=== PATIENT | female | born 1940 | race Caucasian/White ===

== ENCOUNTER 2021-04-04 09:52 | Emergency (ER) | payer MEDICARE, SELFPAY ==
--- NOTE | 2021-04-04 09:45 | RT.EKG_ITS ---
APPROVED REPORT Exam: Resting ECG Reason for Exam: chest pain Patient Location: E HR:95 bpm ECG Measurements Heart Rate 95 AXIS TN 144 P 76 QRSd 86 QRS 9 QT 350 T 238 QTc 440 Conclusion Sinus rhythm...normal P axis, V-rate 60- 99 Repol abnrm suggests ischemia, anterolateral...ST dep, T neg, I aVL V2-V6 1mm ST depression in anterolateral leads. No STEMI. I have reviewed and interpreted ECG and agree with software generated interpretation.
--- NOTE | 2021-04-04 10:01 | W.ED.GENAD ---
Discharge Plan Disposition Patient Disposition: HOME Condition: Improving Discharge Details Clinical Impression: Chest pain, Elevated WBC count Primary Care Provider: Radha,Local ED Provider: Ana Abebe Home Meds and New Rx's Prescriptions: New sucralfate [Carafate] 1 gram tablet 1 g PO QACHS Qty: 30 RF: 0 Continued aspirin 81 mg Tablet,Delayed Release (Dr/Ec) 81 mg PO DAILY RF: 0 raloxifene 60 mg Tablet 60 mg PO DAILY RF: 0 levothyroxine 112 mcg Tablet 112 mcg PO DAILY RF: 0 biotin 500 mcg Capsule 500 mcg PO DAILY RF: 0 cholecalciferol (vitamin D3) [Vitamin D3] 25 mcg (1,000 unit) Capsule 25 mcg PO DAILY RF: 0 PreserVision AREDS [phone] [id number] Capsule 1 cap PO BID RF: 0 Discharge Instructions Instructions: Chest Pain (ED), Diet for Stomach Ulcers and Gastritis (ED) Additional Instructions: Your labs and imaging are reassuring here today. Your pain did improve with movement as well as treatment of acid reflux. Please continue with acid reflux medications as prescribed. Please avoid acidic foods, carbonated beverages or other foods that may trigger increased discomfort. Please continue with your medications as previously prescribed. Please call your public relations sales marketing on Tuesday to schedule follow-up appointment for further evaluation. Please also follow-up closely with your primary care physician. If you develop fever/chills, increased pain, inability to stay hydrated or other new/worsening symptoms please seek care urgently once again. Discharge Data Discharge Date/Time-TO BE ENTERED AT DEPARTURE: 04/04/21 14:36 Medical Decision Making Patient is a pleasant 80-year-old female presented with chief complaint of chest pain. She reports she awoke with chest comfort this morning. Describes this as a pressure. States that this pressure radiates into her bilateral upper extremities which are both aching. Denies any pain radiating to the back. Denies any shortness of breath but does report that pain increases with inspiration. Denies any nausea or vomiting. However, she does report that she has some fairly significant GERD which has been worsening over time. States that she did eat a large meal last night and took Tums shortly after dinner. Patient did take full dose aspirin. She denies any history of ischemic cardiac disease. However, she does report that she had a mitral valve replacement in 2012. Patient reports that she is very active, walks at least 3 miles including hills every day. Has not had any exertional symptoms associated with these times of exercise. Also denies any exertional component to her discomfort today. Rather, she reports that this has been constant with no real exacerbating factors. Patient did drive up from [place] 5 days ago. Denies any history of DVT or clotting disorders. No lower extremity discomfort. On exam, patient appears nontoxic. She is resting comfortably. Normal cardiac exam. Lungs are clear. Acceptable small extremities. No extremity edema or calf tenderness. Differential diagnosis includes ACS, GERD, PE, versus other. History exam is not consistent with aortic dissection. EKG was obtained and reviewed by Dr. Biswas. No previous for comparison. Patient is a sinus rhythm with a rate of 95. Patient does have repull abnormality with [address] depression on the anterior lateral leads. No STEMI. Labs reviewed. Slight elevation white count of 13.9. CMP otherwise without significant abnormalities. D-dimer within normal limits. Chemistry significant for BUN of 23. Troponin within normal limits. TSH within normal limits. Plan for repeat troponin. Patient's blood pressure still significantly. She reports that Carafate did improve her symptoms. States that she continues to have mild discomfort but overall vastly improved. Will add Protonix to this. Chest x-ray was reviewed by radiologist: FINDINGS: Lungs: Emphysema with interstitial prominence in the upper lungs, right worse than left that could be due to scarring or infiltrate. Pleural spaces: Unremarkable. No pleural effusion. No pneumothorax. Heart/Mediastinum: Mitral valve repair. Bones/joints: Unremarkable. Intraperitoneal space: Surgical clips right upper quadrant. IMPRESSION: Emphysema with scarring or infiltrate in the upper lungs. Patient is feeling improved with Protonix. Feels that she is uncomfortable laying down and would improve with mobility. Repeat troponin remains less than 0.05. Repeat EKG was reviewed by Dr. Biswas. Patient began sinus rhythm with a rate of 80. Improvement in the resolution of all depression in the anterior lateral leads. No STEMI. HEART score 3. Discussed this with the patient. Patient was road tested and had improvement of her chest and shoulder discomfort with ambulation. Now reports no pain. Patient wanted to run during her road test. Patient continues to report that her symptoms have improved with Carafate and Protonix. This is likely GI mediated particularly as she was able to link it to the dinner she had last night. Patient would prefer to be able to be at home today. She is planning on returning to [place] tomorrow. Plan to discharge home. She will be in the accompaniment of family is able to return if she develops any new or worsening symptoms. She will follow-up with her house decorator as well as her public relations sales marketing. She reports that she does have an upcoming appointment for echo and schedule follow-up with her public relations sales marketing. I advised that she be evaluated in the next week. Strict return precautions were discussed. Patient is already on an aspirin. We will have her continue with Carafate as this did seem to have good results with the patient. All of her questions and concerns were addressed and she is in agreement with this plan. [facility] General Mode of arrival: ambulatory. Date/Time Provider Initiated Documentation: 04/04/21 09:53. Limitations to Documentation: no limitations. Information obtained by: patient, family () and RN notes reviewed. History of Present Illness 80 year old F presents to the emergency department with the chief complaint of CP, described as moderate, with intensity rated at 6. Quality is described as other (pressure), and is localized to the chest. Patient extremity (BUE, describes pain in arms as aching). Patient started experiencing this hour(s) (0530) and it has been constant. No relieving factors improve symptom(s), No exacerbating factors reported . Patient notes chest pain; denies cough, diaphoresis, fever/chills, loss of appetite, nausea/vomiting, rash, shortness of breath (reports pain worse with inspiration), syncope and weakness. Related Data Home Medications Medication Instructions Recorded Confirmed PreserVision AREDS 1 cap PO BID 04/04/21 04/04/21 aspirin 81 mg PO DAILY 04/04/21 04/04/21 biotin 500 mcg PO DAILY 04/04/21 04/04/21 cholecalciferol (vitamin D3) 25 mcg PO DAILY 04/04/21 04/04/21 [Vitamin D3] levothyroxine 112 mcg PO DAILY 04/04/21 04/04/21 raloxifene 60 mg PO DAILY 04/04/21 04/04/21 sucralfate [Carafate] 1 g PO QACHS #30 tab 04/04/21 Previous Rx's Medication Instructions Recorded sucralfate [Carafate] 1 g PO QACHS #30 tab 04/04/21 Allergies Allergy/AdvReac Type Severity Reaction Status Date / Time azithromycin Allergy Mild Skin Rash Unverified 04/04/21 10:01 Sulfa (Sulfonamide Allergy Mild Skin Rash Unverified 04/04/21 10:01 Antibiotics) Review of Systems Constitutional Constitutional: Reports as per HPI, Denies chills, Denies fever(s), Denies headache(s), Denies lethargy and Denies poor appetite Eyes Eyes: Denies change in vision ENT Ears, Nose, Mouth, and Throat: Denies dizziness and Denies headache(s) Cardiovascular Cardiovascular: Reports as per HPI, Denies dyspnea and Denies dyspnea on exertion Respiratory Respiratory: Reports as per HPI, Denies chest congestion, Denies cough, Denies pain on inspiration, Denies pain with cough, Denies dyspnea, Denies dyspnea on exertion and Denies wheezing Gastrointestinal Gastrointestinal: Reports as per HPI, Denies abdominal pain, Denies diarrhea, Denies nausea and Denies vomiting Musculoskeletal Musculoskeletal: Reports as per HPI and Denies back pain Integumentary/Breasts Skin/Breast: Reports as per HPI and Denies rash Neurologic Neurologic: Reports as per HPI, Denies dizziness and Denies headache(s) Allergic/Immunologic Allergic/Immunologic: Denies wheezing [facility] Social History Smoking/Tobacco Use Status: Never Smoking risk assessment performed?: Yes Alcohol Intake: current Alcohol Intake frequency: 0-2 drinks per day Drug use: Never Do you feel safe at home: Yes Do you feel safe in your relationship?: Yes Exam Const General: cooperative, healthy appearing, comfortable, no acute distress and well developed Nutritional Appearance: average body habitus and well nourished Orientation: alert, awake and oriented x3 HENMT Head: normal to inspection Ears: hearing grossly normal bilaterally Mouth: moist mucous membranes Chest Chest: normal inspection of the chest, normal palpation of entire chest wall and no crepitus Resp Effort & Inspection: normal respiratory effort, able to speak in complete sentences and no respiratory distress Auscultation: clear to auscultation bilaterally, no rales, no rhonchi and no wheezes Cardio Rate: regular rate Rhythm: regular rhythm Heart Sounds: S1 normal and S2 normal GI Inspection: normal to inspection, no edema and non-distended Palpation: soft, no hepatosplenomegaly, not firm, no guarding, not rigid and nontender Auscultation: normal bowel sounds Skin General skin exam: no rashes or lesions noted Trauma: no lacerations or abrasions Neuro General: patient alert, patient awake and patient oriented x3 Cognition: normal cognition Speech: speech normal Gait: normal gait Extrem General: normal to inspection, capillary refill normal, no pedal edema, no calf tenderness, normal gait and other (2+ distal puolses in all extremities) Psych Appearance: grossly normal and well kempt Mental Status: mental status grossly normal Speech and Movement: speech and movement normal
[2021-04-04 10:06] VITALS: BP 170/80; PULSE 93; RESP 15; TEMP 36.5; O2SAT 100
--- NOTE | 2021-04-04 10:15 | DI.RAD_ITS ---
Exam(s) XR CHEST 2V PA LATERAL EXAM: XR CHEST 2V PA LATERAL CLINICAL HISTORY: pleuritic CP TECHNIQUE: 2D digital imaging was performed. COMPARISON: No exams were available for comparison FINDINGS: MEDIASTINUM: Normal. HEART: Normal. Mitral valve replacement. PULMONARY VASCULATURE: Normal. LUNGS: The lungs appear hyperinflated suggesting underlying COPD. PLEURAL SPACE: No pleural effusion or pneumothorax. BONE:Within normal limits for the patient's age. OTHER FINDINGS:Surgical clips are seen in the right upper quadrant of the abdomen. IMPRESSION: No acute pulmonary findings. DATA REPOSITORY: RADIATION DOSE DELIVERED:
[2021-04-04 10:18] VITALS: BP 165/73; PULSE 85; PULSE 87; RESP 18; O2SAT 100
[2021-04-04] MEDS: Sucralfate 1 GM TAB PO (10:28)
[2021-04-04 10:37] LABS: Abs Immature Grans 0.06 10^3/uL (0.0-0.06); Absolute Basophil Count 0.04 10^3/uL (0.0-0.2); Absolute Eosinophil Count 0.08 10^3/uL (0.0-0.7); Absolute Monocyte Count 0.67 10^3/uL (0.1-0.8); Absolute Neutrophil Count 11.64 10^3/uL (1.2-6.7); Basophils % 0.3; Eosinophils % 0.6; HCT 45.2 % (36.0-46.0); HGB 15.1 g/dL (11.2-15.7); Immature Grans % 0.4; Lymphocytes % 10.7; MCH 31.9 pg (27.0-33.0); MCHC 33.4 % (32.0-36.0); MCV 95.4 fL (80-95); MPV 10.5 fL (8.0-11.0); Monocytes % 4.8; Neutrophils % 83.2; Nucleated RBC 0 %; Platelet Count 237 10^3/uL (130-400); RBC 4.74 10^6/uL (3.93-5.22); RDW 13.9 % (11.7-14.6); RDW-SD 49.2 fL; WBC 13.99 10^3/uL (4.4-10.8)
[2021-04-04 10:46] LABS: Prothrombin Time 10.3 sec (9.3-11.0)
[2021-04-04 10:49] LABS: ALT 27 U/L (14-59); AST 21 U/L (15-37); Albumin 3.4 g/dL (3.4-5.0); Alkaline Phosphatase 60 U/L (46-116); Anion Gap 11.4 mmol/L (3-11); BUN 23 mg/dL (7-18); Bilirubin, Total 0.5 mg/dL (0.2-1.0); CO2 25.6 mmol/L (21.0-32.0); CREATININE 0.9 mg/dL (0.55-1.02); Calcium 9.2 mg/dL (8.5-10.1); Chloride 105 mmol/L (98-107); Glucose 99 mg/dL (74-106); Potassium 4.2 mmol/L (3.5-5.1); Sodium 142 mmol/L (136-145); Total Protein 7.2 g/dL (6.4-8.2)
--- OUTSIDE RECORDS SUMMARY | 2021-04-04 10:52 | XMS_ITS | Encounter Summary ---
:1940 Author Organization [facility] Address [address] [place] [phone] Care Team Providers Name Role Phone Inez Oneill MD Primary Care Provider Encounter Details Date Type Department Care Team Description 10/12/2017 Scanned Document [facility] Gynecology [facility] Shital Geiger MD 4A [facility] [address] [place], [place] [address] [address] [place], [place] [phone] Social History Tobacco Use Types Packs/Day Years Used Date Former Smoker Smokeless Tobacco: Never Used Alcohol Use Drinks/Week oz/Week Comments Yes Sex Assigned at Date Recorded Not on file documented as of this encounter Plan of Treatment Upcoming Encounters Date Type Specialty Care Team Description 05/04/2021 Appointment Cardiovascular Disease Jose D Crawford MD [address] [phone] 05/29/2021 Office Visit Cardiovascular Disease Jose D Crawford MD [address] [phone] documented as of this encounter Visit Diagnoses Not on filedocumented in this encounter
--- OUTSIDE RECORDS SUMMARY | 2021-04-04 10:52 | XMS_ITS | Encounter Summary ---
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 elephone Encounter - Jo Ann Webb RN - 07/13/2018 3:[address] Crawford please. Pt calling about new ASA findings. As per MD email, pt informed pt's are advised to stay on ASA until their next OV and issue can be discussed then. Please advise if anything. documented in this encounter Plan of Treatment Upcoming Encounters Date Type Specialty Care Team Description 05/04/2021 Appointment Cardiovascular Disease Jose D Crawford MD [address] [place] [phone] 05/29/2021 Office Visit Cardiovascular Disease Jose D Crawford MD [address] [phone] documented as of this encounter Visit Diagnoses Not on filedocumented in this encounter
--- OUTSIDE RECORDS SUMMARY | 2021-04-04 10:52 | XMS_ITS | Encounter Summary ---
:1940 [address] [facility] and [facility] Address [address] [place] [phone] Care Team Providers Name Role Phone Inez Oneill MD Primary Care Provider Reason for Referral Imaging (Routine) Status Reason Specialty Diagnoses / Referred By Referred To Procedures Contact Contact Closed Cardiovascular Disease Diagnoses MVP (mitral valve prolapse) Palpitations Shortness of breath Marcela Crawford MD Procedures Cardiac Event Monitor [address] [place] [address] Reason for Visit Imaging (Routine) Status Reason Specialty Diagnoses / Referred By Referred To Procedures Contact Contact Closed Cardiovascular Disease Diagnoses MVP (mitral valve prolapse) Palpitations Shortness of breath Marcela Crawford MD Procedures Cardiac Event Monitor [address] [place] [address] Encounter Details Date Type Department Care Team Description 09/11/2019 Hospital Encounter [facility] Cardiac Services Marcela Crawford MVP (mitral valve prolapse); Ramana KENDRICK Palpitations; [address] [facility] [address] [facility] Shortness of breath [address] [place] [address] [place], [place] [phone] Social History Tobacco Use Types Packs/Day Years Used Date Former Smoker Quit: 1969 Smokeless Tobacco: Never Used Alcohol Use Drinks/Week oz/Week Comments Yes social Sex Assigned at Date Recorded Not on file documented as of this encounter Medications at Time of Discharge Medication Sig Dispensed Refills Start Date End Date aspirin 81 MG EC tablet Take 81 mg by mouth 0 daily. biotin 1 mg tablet Take 5,000 mcg by 0 mouth daily.. cycloSPORINE (RESTASIS) Apply 1 drop to 0 0.05 % Dpet eye. levothyroxine (SYNTHROID, Take 112 mcg by 0 06/28 LEVOTHROID) 112 MCG tablet mouth daily. raloxifene (EVISTA) 60 mg Take 60 mg by mouth 0 1 tablet daily. calcium carbonate (TUMS) Take 1 tablet by 0 11/08/2019 *200 mg CALCIUM* chewable mouth as needed tablet levothyroxine (SYNTHROID, 0 09/24/2016 11/08/2019 LEVOTHROID) 100 MCG tablet documented as of this encounter Plan of Treatment Upcoming Encounters Date Type Specialty Care Team Description 05/04/2021 Appointment Cardiovascular Disease Jose D Crawford MD [address] [address] [phone] 05/29/2021 Office Visit Cardiovascular Disease Jose D Crawford MD 2 [facility] 1 [place] [address] [phone] documented as of this encounter Procedures Procedure Name Priority Date/Time Associated Diagnosis Comme [facility] CARDIAC EVENT MONITOR Routine 09/11/2019 12:16 PM MVP (mitral valve 15 OR 30 DAYS EST prolapse) Palpitations Shortness of breath documented in this encounter Results Cardiac Event Monitor (09/11/2019 12:16 PM EST) Specimen Narrative Performed At This result has an attachment that is no t available. Performing Organization Address City/State/ZIP Code Phon e Number [email or web address] documented in this encounter Visit Diagnoses Diagnosis MVP (mitral valve prolapse) Mitral valve disorders Palpitations Shortness of breath documented in this encounter
--- OUTSIDE RECORDS SUMMARY | 2021-04-04 10:52 | XMS_ITS | Encounter Summary ---
:1940 Author Organization [facility] and [facility] Address [address] [place] [phone] Care Team Providers Name Role Phone Inez Oneill MD Primary Care Provider Reason for Referral Imaging (Routine) Status Reason Specialty Diagnoses / Referred By Referred To Procedures Contact Contact Closed Cardiovascular Disease Diagnoses Palpitations Marcela Crawford MD Procedures Holter Monitor - 48 Hour [address] [phone] Reason for Visit Imaging (Routine) Status Reason Specialty Diagnoses / Referred By Referred To Procedures Contact Contact Closed Cardiovascular Disease Diagnoses Palpitations Marcela Crawford MD Procedures Holter Monitor - 48 Hour [address] [phone] Encounter Details Date Type Department Care Team Description 10/25/2019 Hospital Encounter [facility] Cardiac Services Ever Crawford MD Palpitations Rachel 2 [facility] 5 [facility] [address] [place] [phone] Social History Tobacco Use Types Packs/Day [...] Cardiovascular Disease Jose D Crawford MD [address] [address] [phone] 05/29/2021 Office Visit Cardiovascular Disease Jose D Crawford MD [address] [address] [phone] documented as of this encounter Procedures Procedure Name Priority Date/Time Associated Diagnosis Comme nts HOLTER MONITOR - 48 Routine 11/01/2019 8:33 AM EST Palpitatio ns HOUR documented in this encounter Results Holter Monitor - 48 Hour (11/01/2019 8:33 AM EST) Specimen Narrative Performed At This result has an attachment that is no t available. Performing Organization Address City/State/ZIP Code [facility] e Number [email or web address] documented in this encounter Visit Diagnoses Diagnosis Palpitations documented in this encounter
--- OUTSIDE RECORDS SUMMARY | 2021-04-04 10:52 | XMS_ITS | Encounter Summary ---
:1940 Author Organization [facility] Address [address] [place] [phone] Care Team Providers Name Role Phone Inez Oneill MD Primary Care Provider Encounter Details Date Type Department Care Team Description 11/22/2020 Immunization [facility] Covid Vaccination - Enco unter for immunization [facility] (Primary Dx) [address] [facility] [address] [place] [address] Social History Tobacco Use Types Packs/Day Years Used Date Former Smoker Quit: 1970 Smokeless Tobacco: Never Used Alcohol Use Drinks/Week oz/Week Comments Yes social Sex Assigned at Date Recorded Not on file documented as of this encounter Plan of Treatment Upcoming Encounters Date Type Specialty Care Team Description 05/04/2021 Appointment Cardiovascular Disease Jose D Crawford MD [address] [phone] 05/29/2021 Office Visit Cardiovascular Disease Jose D Crawford MD [address] [phone] documented as of this encounter Visit Diagnoses Diagnosis Encounter for immunization - Primary Need for other specified prophylactic va ccination against single bacterial disease documented in this encounter
--- OUTSIDE RECORDS SUMMARY | 2021-04-04 10:52 | XMS_ITS ---
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 Problem List Description Status Onset Family history of breast cancer Active 01/27/20 17 Macular degeneration Active 01/26/2017 Cystocele Active 01/26/2017 Vital Signs Date Time BP-Sys(mm[Hg] BP-Teresa(mm[Hg]) HR(bpm) RR(rpm) Temp WT HT HC BMI BSA BMI O2 Percentile Sat( %) 3:05: 126 mm[Hg] 80 mm[Hg] 124 62 22.6 1.56 017 00 PM lbs in 797 86 kg/m m2 2 Social History Name Description Comments Retired Pt exercises regularly Uses seat belts Tobacco Never smoker Alcohol Current every day Denies illicit substance abuse Feels safe at home History of Procedures Date Ordered Description Order Status 01/26/2017 12:00 AM Pap - with HPV Reviewed 01/26/2017 12:00 AM Medicare geospatial analyst exam Reviewed Results Summary Date and Description Results 01/26/2017 12:00 AM Pap Smear: Normal HPV I/H Ri sk 1 DNA Cervix Ql bDNA Negative 01/26/2017 1:17 PM HPV RNA E6/E7, SurePath Vial Negative 01/26/2017 2:51 PM Mammogram: 03/2016 per pt Col onoscopy: 03/2016 per pt Bone Density 05/2015 per pt History of Past Illness Name Date of Onset Comments Family history of breast cancer 01/26/2017 Diverticulitis 01/2017 early statges per pt Macular degeneration 01/26/2017 Patient reports nadeem t the macular degeneration is in the early stages Former smoker Thyroid disease Mitral Valve Disorders Cystocele 01/26/2017 Encounter for gynecological Jan 26 2017 3:01PM examination Family history of breast cancer Jan 26 2017 3:01PM Macular degeneration Jan 26 2017 3:01PM Cystocele Jan 26 2017 3:01PM Payers Insurance Name Company Name Plan Name Plan Policy Number Policy Start Number Group Date Number Medicare Medicare B-Ct: [id number] N/A [facility] [id number] N/ A Options History of Encounters Visit Date Visit Type Provider 01/26/2017 Office Visit - AUTOMOTIVE DESIGNER 01/26/2017 Office Visit - AUTOMOTIVE DESIGNER Lindsey Bowie MD
--- OUTSIDE RECORDS SUMMARY | 2021-04-04 10:52 | XMS_ITS | Encounter Summary ---
:1940 Author Organization [facility] and [facility] Address [address] [place] [id number] Care Team Providers Name Role Phone Inez Oneill MD Primary Care Provider Reason for Referral Imaging (Routine) Status Reason Specialty Diagnoses / Referred By Referred To Procedures Contact Contact Closed Cardiovascular Disease Diagnoses Mitral valve insufficiency, unspecified etiology Marcela Crawford, Procedures Echo 2D Complete w Doppler and CFI if Indicated Contrast and or 3D [address] [place] [phone] Encounter Details Date Type Department Care Team Description 10/25/2017 Orders Only [facility] Marcela Crawford MD Mitral valve Medicine at [address] [facility] 1 unspecified etiology [address] [place], [place] (Deja lew Dx) [address] [id number] [place] [address] [phone] Social History Tobacco Use Types Packs/Day Years Used Date Former Smoker Smokeless Tobacco: Never Used Alcohol Use Drinks/Week oz/Week Comments Yes Sex Assigned at Date Recorded Not on file documented as of this encounter Plan of Treatment Upcoming Encounters Date Type Specialty Care Team Description 05/04/2021 Appointment Cardiovascular Disease Jose D Crawford MD [address] [phone] 05/29/2021 Office Visit Cardiovascular Disease Jose D Crawford MD [address] [place] [address] documented as of this encounter Results Echo 2D Complete w Doppler and CFI if Indicated Contrast and or 3D (12/16/2017 3:21 PM EST) Pathologist Sig nature Reported Biplane EF% 66Comment: % [facility] UNSELECTED VALUES:EF Percent Visual Range (LUMBIPLANE test with value): 60-65 Specimen Narrative Performed At * Normal left ventricular size, thickness, systolic f unction and wall [facility] motion. LVEF calculated by biplane Acuña's was 66%. ??No regional wall motion abnormalities. ??Diastolic function was di fficult to determine due to mitral valve abnormalit ies. * Normal right ventricular cavity size, systolic funct ion and wall motion. ??Right Ventricular systolic pressure is unabl e to be estimated due to insufficient Doppler signal * Myxomatous mitral valve. ??Trace mitral regurgitatio n. ??No mitral stenosis. ??Mitral valve mean gradient is 2 mmHg. Mitr al valve repair with good leaflet coaptation.No systolic anterior motion. * Aortic valve is trileaflet. ??Mild aortic valve thic kening. ??No aortic stenosis. ??Mild aortic regurgita tion. * Dilated Non-coronary Sinus of Valsalva . * IVC diameter < 2.1 cm that collapses > 50% with a sn iff suggests normal RAP (0-5 mmHg, mean 3 mmHg * No evidence of pericardial effusion * No prior study available for comparison Procedure Note Sean, Rad Results In - 12/16/2017 4:41 P M EST * Normal left ventricular size, thickness, systolic function and wall motion. LVEF calculated by biplane Acuña's was 66%. No regional wall motion abnormalities. Diastolic functio n was difficult to determine due to mitral valve abnormalities. * Normal right ventricular cavity size, systolic function and wall motion. Right Ventricular systolic pressure is unable to be estimated due to insufficient Doppler signal * Myxomatous mitral valve. Trace mitral regurgitation. No mitral stenosis. Mitral valve mean gradient is 2 mmHg. Mitral valve repair with good leaflet coaptation.No systolic anterior motion. * Aortic valve is trileaflet. Mild aort ic valve thickening. No aortic stenosis. Mild aortic regurgitation. * Dilated Non-coronary Sinus of Valsalva . * IVC diameter < 2.1 cm that collapses > 50% with a sniff suggests normal RAP (0-5 mmHg, mean 3 mmHg * No evidence of pericardial effusion * No prior study available for compariso n Performing Organization Address City/State/ZIP Code Phon e Number [facility] documented in this encounter Visit Diagnoses Diagnosis Mitral valve insufficiency, unspecified etiology - Primary documented in this encounter
--- OUTSIDE RECORDS SUMMARY | 2021-04-04 10:52 | XMS_ITS | Clinical Summary ---
:1940 [address] Organization [address] Address [address] [place] [address] Care Team Providers Name Role Phone Inez Oneill MD Primary Care Provider Allergies Active Allergy Reactions Severity Noted Date Comments Azithromycin Rash Low 06/27/2013 Sulfur Rash Low 06/27/2013 Medications Medication Sig Dispensed Refills Start Date End Date Status cycloSPORINE (RESTASIS) Apply 1 drop to 0 Active 0.05 % Dpet eye. aspirin 81 MG EC tablet Take 81 mg by 0 Active mouth daily. biotin 1 mg tablet Take 5,000 mcg 0 Active by mouth daily.. raloxifene (EVISTA) 60 Take 60 mg by 0 07/24/2019 Active mg tablet mouth daily. levothyroxine Take 112 mcg by 0 06/28/2019 Active (SYNTHROID, LEVOTHROID) mouth daily. 112 MCG tablet Active Problems Problem Noted Date Post-menopausal 10/12/2017 MVP (mitral valve prolapse) 11/25/2016 H/O mitral valve repair 11/25/2016 Immunizations Name Administration Dates Next Due COVID-19 Vaccine - PFIZER 12/14/2020, 11/22/2020 Family History Medical History Relation Name Comments Colon cancer Father Coronary Artery Disease Father in early 60s Cancer Mother mesothelioma Cancer Sister glioblastoma Relation Name Status Comments Father Mother Sister Social History Tobacco Use Types Packs/Day Years Used Date Former Smoker Quit: 1969 Smokeless Tobacco: Never Used Alcohol Use Drinks/Week oz/Week Comments Yes social Sex Assigned at Date Recorded Not on file Last Filed Vital Signs Vital Sign Reading Time Taken Comments Blood Pressure 138/80 11/17/2020 10:11 AM EST Pulse 78 11/17/2020 10:11 AM EST Temperature - - Respiratory Rate - - Oxygen Saturation 97% 11/05/2019 2:01 PM EST Inhaled Oxygen Concentration - - Weight 57.2 kg (126 lb) 11/17/2020 10:11 AM EST Height 152.4 cm (5') 11/17/2020 10:11 AM EST Body Mass Index 24.61 11/17/2020 10:11 AM EST Plan of Treatment Upcoming Encounters Date Type Specialty Care Team Description 05/04/2021 Appointment Cardiovascular Disease Jose D Crawford MD [address] [phone] 05/29/2021 Office Visit Cardiovascular Disease Jose D Crawford MD [address] [place] [phone] Health Maintenance Due Date Last Done Comments Hepatitis C screening 1960 Lipid disorder screening 1982 Diabetes screening 1987 Osteoporosis screening (bone density) 2007 Pneumo Vaccine 65+ (2 of 2 - PPSV23) 2007 01/14/2017 Influenza vaccine 05/24/2021 07/24/2020, 07/26/2018 Tetanus adult (Td q 10,TDAP once) 10/24/2021 10/24/2011 Shingles vaccine (Shingrix) Completed 06/22/2019, 01/19/20 19 Covid-19 vaccine series Completed 12/14/2020, 11/22/2020 Breast cancer screening Discontinued Cervical cancer screening (Pap Smear) Discontinued Colon cancer screening,Colonoscopy Discontinued Insurance Payer Benefit Plan / Subscriber ID Effective Dates Phone Addre ss Type Group MEDICARE MEDICARE PART A [id number] 2007-Presen [address] [place] [phone] AAR AAR [id number] 2016-Present [phone] [address] [place] [address]
--- OUTSIDE RECORDS SUMMARY | 2021-04-04 10:52 | XMS_ITS | Encounter Summary ---
:1940 Author Organization [facility] Address [address] [place] [phone] Care Team Providers Name Role Phone Inez Oneill MD Primary Care Provider Reason for Visit Reason Comments New Patient Encounter Details Date Type Department Care Team Description 10/12/2017 Office Visit [facility] Lucy Francisco Vulvar itching (Primary Dx); Shital Law MD Post-menopausal; 4A [facility] 4A [facility] Cystocele with uterine descensus [place], [place] [address] [place], [place] [phone] Social History Tobacco Use Types Packs/Day Years Used Date Former Smoker Smokeless Tobacco: Never Used Alcohol Use Drinks/Week oz/Week Comments Yes Sex Assigned at Date Recorded Not on file documented as of this encounter Last Filed Vital Signs Vital Sign Reading Time Taken Comments Blood Pressure 120/70 10/12/2017 9:30 AM EST Pulse - - Temperature - - Respiratory Rate - - Oxygen Saturation - - Inhaled Oxygen Concentration - - Weight 55.3 kg (122 lb) 10/12/2017 9:30 AM EST Height 158.8 cm (5' 2.5) 10/12/2017 9:30 AM EST Body Mass Index 21.96 10/12/2017 9:30 AM EST documented in this encounter Patient Instructions Patient InstructionsLucy Garcia MD - 10/12/2017 9:30 AM ESTDisorders of the Vulva It is important to know the outside (external) area of the female genitalia to properly examine yourself. The vulva or labia, sometimes also called the lips around the vagina, covers the pubic bone andsurrounds the vagina. The larger or outer labia is called the labia majora. The inner or smaller labia is called the labia minora. The clitoris is at the top of the vulva. It is covered by a small areaof tissue called the hopson. Below the clitoris is the opening of the tube from the bladder, which is the urethral opening. Just below the urethral opening is the opening of the vagina. This area is called the vestibule. Inside the vestibule are bartholin and skene glands that lubricate the outside of the vagina during sexual intercourse. The perineum is the area that lies between the vagina and anus. You should examine your external genitalia once a month just as you do your self breast examination. SIGNS AND SYMPTOMS TO LOOK FOR DURING YOUR EXAMINATION: ?? Swelling. ?? Redness. ?? Bumps. ?? Blisters. ?? Black or white areas. ?? Itching. ?? Bleeding. ?? Burning. TYPES OF VULVAR PROBLEMS ?? Infections. ?? Yeast (fungus) is the most common infection that causes redness, swelling, itching and a thick white vaginal discharge. Women with diabetes, taking medicines that kill germs (antibiotics) or on control pills are at risk for yeast infection. This infection is treated with vaginal creams, suppos itories and anti-itch cream for the vulva. ?? Genital warts (condyloma) are caused by the human papilloma virus. They are raised bumps that canitch, bleed, cause discomfort and sometimes appear in groups like cauliflower. This is a sexually transmitted disease (STD) caused by sexual contact. This can be treated with topical medication, freezing, electrocautery, laser or surgical removal. ?? Genital herpes is a virus that causes redness, swelling, blisters and ulcers that can cause itching and are very painful. This is also a STD. There are medications to control the symptoms of herpes,but there is no cure. Once you have it, you keep getting it because the virus stays in your body. ?? Contact dermatitis. Contact dermatitis is an irritation of the vulva that can cause redness, swelling and itching. It can be caused by: ?? Perfumed toilet paper. ?? Deodorants. ?? Talcum powder. ?? Hygiene sprays. ?? Tampons. ?? Soaps and fabric softeners. ?? Wearing wet underwear and bathing suits too long. ?? Spermicide. ?? Condoms. ?? Diaphragms. ?? Poison lucila. Treatment will depend on eliminating the cause and treating the symptoms. ?? Vulvodynia. ?? Vulvodynia is painful vulva. It includes burning, itching, irritation and a feeling of rawness or bruising of the vulva. Treating this problem depends on the cause and diagnosis. Treatment can take a long time. ?? Vulvar Dystrophy. ?? Vulvar Dystrophy is a disorder of the skin of the vulva. The skin can be too thick with hard raised patches or too thin skin showing wrinkles. Vulvar dystrophy can cause redness or white patches, itching and burning sensation. A biopsy may be needed to diagnose the problem. Treatment with creams orointments depends on the diagnosis. ?? Vulvar Cancer. ?? Vulvar cancer is usually a form of squamus skin cancer. Other types of vulvar cancer like melenoma (a dark or black, irregular shaped mole that can bleed easily) and adenocarcinoma (red, itchy, scaly area that looks like eczema) are rare. Treatment is usually surgery to remove the cancerous area, the vulva and the lymph nodes in the groin. This can be done with or without radiation and chemotherapy. HOME CARE INSTRUCTIONS ?? Look at your vulva and external genital area every month. ?? Follow and finish all treatment given to you by your caregiver. ?? Do not use perfumed or scented soaps, detergents, hygiene spray, talcum powder, tampons, douches or toilet paper. ?? Remove your tampon every 6 hours. Do not leave tampons in overnight. ?? Wear loose-fitting clothing. ?? Wear underwear that is cotton. ?? Avoid spermicidal creams or foams that irritate you. SEEK MEDICAL CARE IF: ?? You notice changes on your vulva such as redness, swelling, itching, color changes, bleeding, small bumps, blisters or any discomfort. ?? You develop an abnormal vaginal discharge. ?? You have painful sexual intercourse. ?? You notice swelling of the lymph nodes in your groin. Document Released: 03/28/2009 Document Revised: 01/01/2013 Document Reviewed: 01/10/2012 ExitCare?? Patient Information ??2013 [employer]. documented in this encounter Progress Notes Lucy Garcia MD - 10/12/2017 9:30 AM EST Date of Service: 10/12/2017 CHIEF COMPLAINT: had concerns including New Patient. mc , PARA: , 9 grands (oldest 20 fabio at [facility]) LAST MENSTRUAL PERIOD: No LMP recorded. Patient is postmenopausal. 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 Active with [employer] work in town Lives in [place] Moved from [place] 1 yr ago [place] Started with bad itch x 2 weeks, felt raw, red, needed to scratch caused skin to bleed Tried monistat insert x 3 days, better but still has itching Nov 2 tick bite given doxy dose at urgent care Labs 2 weeks later neg Lyme Changed to dial soap (from dove) past 1.5 weeks advised by [facility] due to hx MV repair Also can see vag prolapse in mirror since moving to [place] x 1 yr No problems with BM, urin Was referred to Dr Azeb carver [place] (long wait) Not SA ( had open heart surgery) Hx MV repair [employer] PERSON HISTORY: CONTRACEPTION USED: PM PAP HISTORY: [place] MAMMOGRAM HISTORY: OBSTETRIC HISTORY: OB History No data available PAST MEDICAL HISTORY: No past medical history on file. GENERAL SURGERY: Past Surgical History: Procedure Laterality Date ??? MITRAL VALVE REPAIR 2012 CURRENT ALLERGY LIST: Allergies Allergen Reactions ??? Azithromycin Rash ??? Sulfur Rash CURRENT MEDICATION LIST: Current Outpatient Prescriptions Medication Sig Dispense Refill ??? aspirin 81 MG EC tablet Take 81 mg by mouth daily. ??? biotin 1 mg tablet Take 1,000 mcg by mouth daily. ??? calcium carbonate (TUMS) *200 mg CALCIUM* chewable tablet Take 1 tablet by mouth daily. ??? cycloSPORINE (RESTASIS) 0.05 % Dpet Apply 1 drop to eye. ??? levothyroxine (SYNTHROID, LEVOTHROID) 100 MCG tablet ??? cholecalciferol (VITAMIN D) 1,000 unit tablet Take 1,000 Units by mouth daily. ??? clotrimazole-betamethasone (LOTRISONE) cream Apply up to QID max 2 weeks 45 g 1 No current facility-administered medications for this visit. FAMILY HISTORY: No family history on file. SOCIAL HISTORY: treadmill 3 miles a day Social History Social History ??? Marital status: Spouse name: N/A ??? Number of children: N/A ??? Years of education: N/A Social History Main Topics ??? Smoking status: Former Smoker ??? Smokeless tobacco: Never Used ??? Alcohol use Yes ??? Drug use: No ??? Sexual activity: Not Asked Other Topics Concern ??? None Social History Narrative REVIEW OF SYSTEMS: Review of Systems - Negative except as indicated in HPI PHYSICAL EXAM: Physical Examination: Vitals: 10/12/17 0930 BP: 120/70 Weight: 55.3 kg Height: 5' 2.5 (1.588 m) Body mass index is 21.96 kg/(m^2). General appearance - alert, well appearing, and in no distress, oriented to person, place, and timeand normal appearing weight Mental status - alert, oriented to person, place, and time, normal mood, behavior, speech, dress, motor activity, and thought processes, affect appropriate to mood Eyes - pupils equal and reactive, extraocular eye movements intact, left eye normal, right eye normal Chest - no tachypnea, retractions or cyanosis Neurological - alert, oriented, normal speech, no focal findings or movement disorder noted, motor and sensory grossly normal bilaterally Musculoskeletal - no joint tenderness, deformity or swelling, no muscular tenderness noted, full range of motion without pain Extremities - peripheral pulses normal, no pedal edema, no clubbing or cyanosis, no edema, redness or tenderness in the calves or thighs Pelvic Exam: ?? External Genitalia: General appearance; normal ?? Atrophic ?? Introitus normal ?? External urethral meatus appearance: normal ?? Bartholin glands: non tender, erythema is absent ?? [place] glands: non tender, erythema is absent ?? Labia wnl ?? Vagina: Normal appearance ?? cystocele ?? Cervix: Cervix has normal appearance, Cervix is parous, Mobility: mobile ?? Uterus: Uterine shape is regular , descends with valsalva ?? Adnexa:Normal ?? Rectal/Vaginal: deferred ASSESSMENT/PLAN: 1. Vulvar itching 2. Post-menopausal 3. Cystocele with uterine descensus probable resolving yeast dermatitis advise use only dove soap for vulvar region Requested Prescriptions Signed Prescriptions Disp Refills ??? clotrimazole-betamethasone (LOTRISONE) cream 45 g 1 Sig: Apply up to QID max 2 weeks Enma Urogyn number given in case cystocele with mild uterine descent bothersome PREVENTATIVE COUNSELING: Reviewed with patient, pap & mammo guidelines, CT dense br law, ramont access. RETURN VISIT: prn TIME PHYSICIAN WITH PATIENT: More than 50% of visit spent in discussion counseling/coordinating care documented in this encounter Plan of Treatment Upcoming Encounters Date Type Specialty Care Team Description 05/04/2021 Appointment Cardiovascular Disease Jose D Crawford MD [address] [phone] 05/29/2021 Office Visit Cardiovascular Disease Jose D Crawford MD 2 [facility] 1 [place] [phone] documented as of this encounter Visit Diagnoses Diagnosis Vulvar itching - Primary Pruritus of genital organs Post-menopausal Asymptomatic postmenopausal status (age- related) (natural) Cystocele with uterine descensus Uterovaginal prolapse, unspecified documented in this encounter
--- OUTSIDE RECORDS SUMMARY | 2021-04-04 10:52 | XMS_ITS | Encounter Summary ---
:1940 Author Organization [facility] Address [address] [place] [phone] Care Team Providers Name Role Phone Inez Oneill MD Primary Care Provider Reason for Visit Reason Comments Follow-up Encounter Details Date Type Department Care Team Description 12/23/2017 Office Visit [facility] Marcela Crawford MD MVP (mitral valve prolapse) (Primary Dx) ; Medicine at [address] [place] [address] [place] [address] [phone] [place], [place] [address] Social History Tobacco Use Types Packs/Day Years Used Date Former Smoker Quit: 1970 Smokeless Tobacco: Never Used Alcohol Use Drinks/Week oz/Week Comments Yes social Sex Assigned at Date Recorded Not on file documented as of this encounter Last Filed Vital Signs Vital Sign Reading Time Taken Comments Blood Pressure 140/60 12/23/2017 3:36 PM EST Pulse 79 12/23/2017 3:36 PM EST Temperature - - Respiratory Rate - - Oxygen Saturation 98% 12/23/2017 3:36 PM EST Inhaled Oxygen Concentration - - Weight 56.7 kg (125 lb) 12/23/2017 3:36 PM EST Height 158.8 cm (5' 2.5) 12/23/2017 3:36 PM EST Body Mass Index 22.5 12/23/2017 3:36 PM EST documented in this encounter Progress Notes Marcela Crawford MD - 12/23/2017 3:30 PM EST [facility] is a 77 y.o. year old female with a PMHx of myxomatous mitral valve s/p MV repair, presenting for followup. Brief Cardiac History: She underwent MV repair with an annuloplasty ring in 2012 at [facility]. 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 She was treated with ashort course of amiodarone. She subsequently wore a holter monitor for evaluation of palpitations [id number] which showed no PVCs, occasional PACs and no NSVT, pauses or atrial fibrillation. Interim History: She has been doing well. She has not had any chest pain, shortness of breath, lightheadedness, orthopnea, syncope or LE edema. She occasionally has palpitations st night while lying in bed. She feels her heart racing but not skipping beats and it lasts on the order of 1-2 minutes. She does not have pa lpitations during the day. As above, she previously wore a holter monitor for evaluation of the palpitations as noted above. She has no prior history of coronary insufficiency. At the time of her mitral valve surgery, she did not require prophylactic bypass surgery. She continues to use amoxicillin prophylaxis. Additional Review of Systems 10 systems reviewed and found to be negative except as noted in the HPI. Past Medical History Past Medical History: Diagnosis Date ??? 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 Hyperthyroidism s/p radioactive iodine in 1994 and 1996 ??? Mitral valve prolapse 2012 s/p mitral valve repair ??? Primary thyroid papillary adenocarcinoma s/p thyroidectomy in 2006 ??? 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 Family History The family history includes Cancer in her sister; Cancer (age of onset: 78) in her mother; Colon cancer (age of onset: 76) in her father; Coronary Artery Disease in her father. Social History Ms. Reyes reports that she quit smoking about 48 years ago. She has never used smokeless tobacco.She reports that she drinks alcohol. She reports that she does not use illicit drugs. Medications: Current Medications Medication Sig ??? aspirin 81 MG EC tablet Take 81 mg by mouth daily. ??? biotin 1 mg tablet Take 1,000 mcg by mouth daily. ??? calcium carbonate (TUMS) *200 mg CALCIUM* chewable tablet Take 1 tablet by mouth daily. ??? cholecalciferol (VITAMIN D) 1,000 unit tablet Take 1,000 Units by mouth daily. ??? clotrimazole-betamethasone (LOTRISONE) cream Apply up to QID max 2 weeks ??? cycloSPORINE (RESTASIS) 0.05 % Dpet Apply 1 drop to eye. ??? levothyroxine (SYNTHROID, LEVOTHROID) 100 MCG tablet Intolerances Azithromycin and Sulfur Physical Exam HR 79 BP Readings from Last 3 Encounters: 12/23/17 140/60 10/12/17 120/70 11/25/16 110/80 Last 3 weights 12/23/2017 10/12/2017 11/25/2016 Weight (lb) 125 lb 122 lb 123 lb Weight (kg) 56.7 kg 55.339 kg 55.792 kg Constitutional: Calm and comfortable. Appears younger than her stated age HEENT: Sclera anicteric. Moist oropharynx. Neck:: JVP normal. No carotid bruits. CV: Regular rhythm with normal S1S2. No murmur. No gallop. No rub. Resp: Clear to auscultation with normal effort and excursion. GI: NABS, soft, and nontender. Ext: Warm. No LE edema. Neuro: Alert, oriented, and appropriate. Data No recent labs for review. ECG: sinus rhythm, nonspecific ST-T wave abnormalities. QTc 490msec. There were no significant changes in direct comparison to prior tracings. TTE (11/2017): * Normal left ventricular size, thickness, systolic function and wall motion. LVEF calculated by biplane Acuña's was 66%. No regional wall motion abnormalities. Diastolic function was difficult todetermine due to mitral valve abnormalities. * Normal right ventricular cavity size, systolic function and wall motion. Right Ventricular systolic pressure is unable to be estimated due to insufficient Doppler signal * Myxomatous mitral valve. Trace mitral regurgitation. No mitral stenosis. Mitral valve mean gradient is 2 mmHg. Mitral valve repair with good leaflet coaptation.No systolic anterior motion. * Aortic valve is trileaflet. Mild aortic valve thickening. No aortic stenosis. Mild aortic regurgitation. * Dilated Non-coronary Sinus of Valsalva. * IVC diameter < 2.1 cm that collapses > 50% with a sniff suggests normal RAP (0-5 mmHg, mean 3 mmHg * No evidence of pericardial effusion * No prior study available for comparison Impression Etta Reyes is a 77 y.o. female with a PMHx of myxomatous mitral valve s/p MV repair with post-op atrial fibrillation, presenting for followup. She is doing well without signs or symptoms of heart failure.. Her recent TTE showed the valve is functioning well. She has the sensation of an accelerated beat intermittently at night but has worn a holter monitor for evaluation of this in the past and did not have documented atrial fibrillation or tachy arrhythmias. Her blood pressure today is on target. Her EKG is notable for a slightly prolongedQTc, which appears to be stable compared to prior. Would avoid new QT prolonging medications. As previously noted, she does not fall under conventional criteria for antibiotic prophylaxis for dental procedures, but it is reasonable for her to continue with amoxicillin prior to dental procedures as long as she has no side effects related to it. ?? I will see back in a year for followup. I asked her to call with any questions, concerns,or change in her clinical status in the interim. documented in this encounter Plan of Treatment Upcoming Encounters Date Type Specialty Care Team Description 05/04/2021 Appointment Cardiovascular Disease Jose D Crawford MD [address] [phone] 05/29/2021 Office Visit Cardiovascular Disease Jose D Crawford MD [address] [address] [phone] documented as of this encounter Procedures Procedure Name Priority Date/Time Associated Diagnosis Comme nts EKG Routine 12/23/2017 3:32 PM MVP (mitral valve Res ults for this EST prolapse) procedure are i n the results section . documented in this encounter Results EKG (12/23/2017 3:32 PM EST) [facility] nature ECG - HEART RATE 79 bpm [facility] EKG ECG - QRS Interval 99 ms [facility] EKG ECG - QT Interval 427 ms [facility] EKG ECG - QTC Interval 490 ms [facility] EKG ECG - P [place] 76 deg [facility] EKG ECG - QRS [place] 0 deg [facility] EKG ECG - T Wave [place] 9 deg [facility] EKG ECG -- P-R Interval 144Comment: msec [facility] EKG rhythm:Prolonged QT interval:Nonspec ific ST-T wave abnormalities:El ectronically Signed On 12-24-2017 23:52:00 EST by Marcela Crawford MD Specimen Performing Organization Address City/State/ZIP Code Phon e Number [facility] EKG documented in this encounter Visit Diagnoses Diagnosis MVP (mitral valve prolapse) - Primary Mitral valve disorders QT prolongation Nonspecific abnormal electrocardiogram ( ECG) (EKG) documented in this encounter
--- OUTSIDE RECORDS SUMMARY | 2021-04-04 10:52 | XMS_ITS | Encounter Summary ---
:1940 Author Organization [facility] Address [address] [place] [phone] Care Team Providers Name Role Phone Inez Oneill MD Primary Care Provider Reason for Referral Imaging (Routine) Status Reason Specialty Diagnoses / Referred By Referred To Procedures Contact Contact Closed Cardiovascular Disease Diagnoses MVP (mitral valve prolapse) Palpitations Shortness of breath Marcela Crawford, Procedures Echo 2D Complete w Doppler and CFI if Ind Image Enhancement 3D and or bubbles [address] [phone] Reason for Visit Imaging (Routine) Status Reason Specialty Diagnoses / Referred By Referred To Procedures Contact Contact Closed Cardiovascular Disease Diagnoses MVP (mitral valve prolapse) Palpitations Shortness of breath Marcela Crawford, Procedures Echo 2D Complete w Doppler and CFI if Ind Image Enhancement 3D and or bubbles [address] [phone] Encounter Details Date Type Department Care Team Description 09/11/2019 Hospital Encounter [facility] Cardiac Services Marcela Crawford MVP (mitral valve prolapse); Ramana KENDRICK Palpitations; [address] [facility] breath [address] [place] [address] [place], [place] [phone] Social History Tobacco Use Types Packs/Day [...] Appointment Cardiovascular Disease Jose D Crawford MD [address] [place] [phone] 05/29/2021 Office Visit Cardiovascular Disease Jose D Crawford MD [address] [place] [phone] documented as of this encounter Procedures Procedure Name Priority Date/Time Associated Diagnosis Comme nts ECHO 2D COMP W DOPP Routine 09/11/2019 12:02 PM MVP (mitral va lve Results for this AND CFI IF IND EST prolapse) procedure are in CONTRAST AND OR 3D Palpitations the results Shortness of breath section. documented in this encounter Results Echo 2D Complete w Doppler and CFI if Ind Image Enhancement 3D and or bubbles (09/11/2019 12:02 PM EST) Pathologist Sig nature Reported Biplane EF% 55 % [facility] Specimen Narrative Performed At * Normal left ventricular size, thickness, systolic f unction and wall [facility] motion. LVEF calculated by biplane Acuña's was 55%. ??No regional wall motion abnormalities. ??Moderate diastolic dysfun ction consistent with increase in filling pressure (grade 2). * Normal right ventricular cavity size and systolic fu nction. ??Estimated right ventricular systolic p ressure is 22 mmHg. * Left atrium is mildly dilated. * Mild-moderate aortic regurgitation. * Patient is post mitral valve repair. ??Myxomatous mi tral valve. ??Mild mitral regurgitation. ??No mitral stenosis. * Mild tricuspid regurgitation. * No evidence of pericardial effusion. * Compared with the prior study, dated 12/16/2017, the re are no significant image changes. Procedure Note Sean, Rad Results In - 09/11/2019 5:25 P M EST * Normal left ventricular size, thickness, systolic function and wall motion. LVEF calculated by biplane Acuña's was 55%. No regional wall motion abnormalities. Moderate diastoli c dysfunction consistent with increase in filling pressure (grade 2). * Normal right ventricular cavity size a nd systolic function. Estimated right ventricular systolic pressure is 22 mmHg. * Left atrium is mildly dilated. * Mild-moderate aortic regurgitation. * Patient is post mitral valve repair. Myxomatous mitral valve. Mild mitral regurgitation. No mitral stenosis. * Mild tricuspid regurgitation. * No evidence of pericardial effusion. * Compared with the prior study, dated 12/16/2017, there are no significant image changes. Performing Organization Address City/State/ZIP Code Phon e Number [facility] documented in this encounter Visit Diagnoses Diagnosis MVP (mitral valve prolapse) Mitral valve disorders Palpitations Shortness of breath documented in this encounter
--- OUTSIDE RECORDS SUMMARY | 2021-04-04 10:52 | XMS_ITS | Encounter Summary ---
:1940 Author Organization [facility] Address [address] [place] [phone] Care Team Providers Name Role Phone Inez Oneill MD Primary Care Provider Reason for Visit Reason Comments Follow-up Encounter Details Date Type Department Care Team Description 05/12/2020 Office Visit [facility] Marcela Crawford MD MVP (mitral valve prolapse) (Primary Dx) ; Medicine at [address] [place] [address] Palpitations; [facility] [address] 1 Hyperlipidemia, [facility] [place] [place] [address] [phone] [place], [place] [address] Social History Tobacco Use Types Packs/Day Years Used Date Former Smoker Quit: 1970 Smokeless Tobacco: Never Used Alcohol Use Drinks/Week oz/Week Comments Yes social Sex Assigned at Date Recorded Not on file documented as of this encounter Last Filed Vital Signs Vital Sign Reading Time Taken Comments Blood Pressure 124/70 05/12/2020 1:30 PM EDT Pulse 85 05/12/2020 1:30 PM EDT Temperature - - Respiratory Rate - - Oxygen Saturation - - Inhaled Oxygen Concentration - - Weight 57.2 kg (126 lb) 05/12/2020 1:30 PM EDT Height 160 cm (5' 3) 05/12/2020 1:30 PM EDT Body Mass Index 22.32 05/12/2020 1:30 PM EDT documented in this encounter Progress Notes Marcela Crawford MD - 05/12/2020 1:30 PM EDT [facility] is a 79 y.o. year old female with a PMHx of myxomatous mitral valve s/p MV repair, presenting for followup. Brief Cardiac History: She underwent MV repair with an annuloplasty ring in 2012 at [facility]. 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 She was treated with ashort course of amiodarone. She subsequently wore a holter monitor for evaluation of palpitations [id number] which showed no PVCs, occasional PACs and no NSVT, pauses or atrial fibrillation. She has no prior history of coronary insufficiency. At the time of her mitral valve surgery, she did not require prophylactic bypass surgery. In 08/2019 she wore an event monitor for evaluation palpitations. However there were issues with cell service and only 5 hours of diagnostic set of were obtained. According to the report she had 15% ventricular ectopy burden though the limited strips provided strips do not show any significant ventricular ectopy. In 10/2019 she wore a Holter monitor which showed occasional premature atrial and ventricular contractions. There were three beat runs of SVT. No atrial fibrillation or NSVT. Interim History: She is doing well. She reports her anxiety is under better control. She continues to have occasionalepisodes where she feels her heart racing but the symptoms have improved since her last visit. She only experiences them when she becomes upset. They occur about once a month and resolve once she calms. She has not had any chest discomfort, SOB, LE swelling, or light-headedness. She uses an ellipticalfor exercise. Additional Review of Systems 10 systems reviewed [...] Reyes reports that she quit smoking about 50 years ago. She has never used smokeless tobacco.She reports current alcohol use. She reports that she does not use drugs. Medications: Current Medications Medication Sig ??? aspirin 81 MG EC tablet Take 81 mg by mouth daily. ??? biotin 1 mg tablet Take 5,000 mcg by mouth daily.. ??? cycloSPORINE (RESTASIS) 0.05 % Dpet Apply 1 drop to eye. ??? levothyroxine (SYNTHROID, LEVOTHROID) 112 MCG tablet Take 112 mcg by mouth daily. ??? raloxifene (EVISTA) 60 mg tablet Take 60 mg by mouth daily. Intolerances Azithromycin and Sulfur Physical Exam Pulse: [85] 85 BP: (124)/(70) 124/70 BP Readings from Last 3 Encounters: 05/12/20 124/70 11/05/19 120/70 10/15/19 110/80 Last 3 weights 05/12/2020 11/05/2019 10/15/2019 Weight (lb) 126 lb 126 lb 123 lb Weight (kg) 57.153 kg 57.153 kg 55.792 kg Exam today: 05/12/2020 Constitutional: Calm and comfortable. Appears younger than her stated age. HEENT: Sclera anicteric. Moist oropharynx. Neck: JVP normal. No carotid bruits. CV: Regular rhythm. No pathologic murmur. Resp: Clear to auscultation with normal effort and excursion. Ext: Warm. No LE edema. Neuro: Alert, oriented, and appropriate. Data Labs from 01/2019 Tchol 218, HDL 67, TG 107, LDL 130 CMP wnl including Cr 0.76, K 4.4 CBC wnl ECG today: sinus rhythm with nonspecific ST-T wave abnormalities and borderline QTc. Compared to prior, there is no diagnostic change. TTE (08/2019): * Normal left ventricular size, thickness, systolic function and wall motion. LVEF calculated by biplane Acuña's was 55%. No regional wall motion abnormalities. Moderate diastolic dysfunction consistent with increase in filling pressure (grade 2). * Normal right ventricular cavity size and systolic function. Estimated right ventricular systolic pressure is 22 mmHg. * Left atrium is mildly dilated. * Mild-moderate aortic regurgitation. * Patient is post mitral valve repair. Myxomatous mitral valve. Mild mitral regurgitation. No mitral stenosis. * Mild tricuspid regurgitation. * No evidence of pericardial effusion. * Compared with the prior study, dated 12/16/2017, there are no significant image changes. Holter monitor (10/2019): Sinus rhythm. Occasional atrial ectopy including runs of up to three beats. Occasional ventricular ectopy. No NSVT. No atrial fibrillation. Impression Etat Reyes is a 79 y.o. female with a PMHx of myxomatous mitral valve s/p MV repair with post-op atrial fibrillation, presenting for followup. 1. Palpitations. History of post-op afib following her MV repair but has not had any documented episodes since. Her monitor in 10/2019 showed occasional atrial and ventricular ectopy but no atrial fibrillation. Overall, the palpitations have become less frequent. Will continue to monitor for now. I asked her to report to me if the symptoms become more bothersome, in which case we will start a BB. 2. Myxomatous mitral valve s/p MV repair. TTE showed no mitral stenosis and only trace residual MR. She requires antibiotic prophylaxis for dental procedures. 3. Prolonged QTc. Avoid QT prolonging meds. 4. Primary prevention of CAD. She has a lab order form from Dr. Oneill and will have her cholesterol rechecked in the near future. I will see back in 6 months for followup. I asked her to call with any questions, concerns, or change in her clinical status in the interim. Scribed for Dr. Crawford by Isidra Montesinos, electromedical service engineer. May 12, 2020 Electronically Signed by Isidra Montesinos, May 12, 2020 The documentation recorded by the scribe accurately reflects the service I personally performed and the decisions made by me. documented in this encounter Plan of Treatment Upcoming Encounters Date Type Specialty Care Team Description 05/04/2021 Appointment Cardiovascular Disease Jose D Crawford MD [address] [phone] 05/29/2021 Office Visit Cardiovascular Disease Jose D Crawford MD [address] [address] [phone] documented as of this encounter Procedures Procedure Name Priority Date/Time Associated Diagnosis Comme nts EKG Routine 05/12/2020 1:33 PM MVP (mitral valve Res ults for this EDT prolapse) procedure are i n the results section . documented in this encounter Results EKG (05/12/2020 1:33 PM EDT) ECG - HEART RATE 85 bpm [facility] EKG ECG - QRS Interval 89 ms [facility] EKG ECG - QT Interval 405 ms [facility] EKG ECG - QTC Interval 483 ms [facility] EKG ECG - P [place] 80 deg [facility] EKG ECG - QRS [place] 16 deg [facility] EKG ECG - T Wave [place] -11 deg [facility] EKG ECG -- P-R Interval 149Comment: :Sinus msec [facility] rhythm:[facility] E[facility] T abnormalities, anterior leads:Electronical ly Signed On 05-13-2020 16:52:54 EDT by Gretchen Crow MD Specimen Performing Organization Address City/State/ZIP Code Phon e Number [facility] EKG documented in this encounter Visit Diagnoses Diagnosis MVP (mitral valve prolapse) - Primary Mitral valve disorders Palpitations Hyperlipidemia, acquired Other and unspecified hyperlipidemia documented in this encounter
--- OUTSIDE RECORDS SUMMARY | 2021-04-04 10:52 | XMS_ITS | Encounter Summary ---
:1940 Author Organization [facility] Address [address] [place] [phone] Care Team Providers Name Role Phone Inez Oneill MD Primary Care Provider Encounter Details Date Type Department Care Team Description 12/14/2020 Immunization [facility] Vaccination - [place], [place] En counter for [facility] MD Joe immunization (Primary [address] [facility] [address] [facility] [address], [address] [place] [address] Dx) [address] [place] [phone] Social History Tobacco Use Types Packs/Day Years Used Date Former Smoker Quit: 1970 Smokeless Tobacco: Never Used Alcohol Use Drinks/Week oz/Week Comments Yes social Sex Assigned at Date Recorded Not on file documented as of this encounter Plan of Treatment Upcoming Encounters Date Type Specialty Care Team Description 05/04/2021 Appointment Cardiovascular Disease Jose D Crawford MD [address] [phone] 05/29/2021 Office Visit Cardiovascular Disease Jose D Crawford MD [address] [phone] documented as of this encounter Visit Diagnoses Diagnosis Encounter for immunization - Primary Need for other specified prophylactic va ccination against single bacterial disease documented in this encounter
--- OUTSIDE RECORDS SUMMARY | 2021-04-04 10:52 | XMS_ITS | Encounter Summary ---
:1940 Author Organization [facility] and [facility] Address [address] [place] [phone] Care Team Providers Name Role Phone Inez Oneill MD Primary Care Provider Reason for Referral Imaging (Routine) Status Reason Specialty Diagnoses / Referred By Referred To Procedures Contact Contact Closed Cardiovascular Disease Diagnoses Mitral valve insufficiency, unspecified etiology Meoli Marcela, Procedures Echo 2D Complete w Doppler and CFI if Indicated Contrast and or 3D 2 Cinthia Doyle Sinan [address] [place] [phone] Reason for Visit Imaging (Routine) Status Reason Specialty Diagnoses / Referred By Referred To Procedures Contact Contact Closed Cardiovascular Disease Diagnoses Mitral valve insufficiency, unspecified etiology Meoli, Marcela, Procedures Echo 2D Complete w Doppler and CFI if Indicated Contrast and or 3D 2 Cinthia Doyle Sinan [address] [place] [address] Encounter Details Date Type Department Care Team Description 12/16/2017 Hospital Encounter [facility] Cardiac Services Demetria Hu Mitral valve Arcadio Felton MD insufficiency, [address] [place] [address] [place] [phone] Social History Tobacco Use Types Packs/Day Years Used Date Former Smoker Smokeless Tobacco: Never Used Alcohol Use Drinks/Week oz/Week Comments Yes Sex Assigned at Date Recorded Not on file documented as of this encounter Last Filed Vital Signs Vital Sign Reading Time Taken Comments Blood Pressure - - Pulse 83 12/16/2017 2:01 PM EST Temperature - - Respiratory Rate - - Oxygen Saturation 93% 12/16/2017 2:01 PM EST Inhaled Oxygen Concentration - - Weight - - Height - - Body Mass Index - - documented in this encounter Medications at Time of Discharge Medication Sig Dispensed Refills Start Date End Date aspirin 81 MG EC tablet Take 81 mg by 0 mouth daily. biotin 1 mg tablet Take 5,000 mcg by 0 mouth daily.. cycloSPORINE (RESTASIS) Apply 1 drop to 0 0.05 % Dpet eye. calcium carbonate (TUMS) Take 1 tablet by 0 11/08/2019 *200 mg CALCIUM* chewable mouth as needed tablet cholecalciferol (VITAMIN D) Take 1,000 Units 0 12/23/2017 1,000 unit tablet by mouth daily. clotrimazole-betamethasone Apply up to QID 45 g 1 09/2412/23/2017 (LOTRISONE) cream max 2 weeks levothyroxine (SYNTHROID, 0 09/24/2016 11/08/2019 LEVOTHROID) 100 MCG tablet documented as of this encounter Plan of Treatment Upcoming Encounters Date Type Specialty Care Team Description 05/04/2021 Appointment Cardiovascular Disease Jose D Crawford MD [address] [place] [phone] 05/29/2021 Office Visit Cardiovascular Disease Jose D Crawford MD [address] [place] [phone] documented as of this encounter Procedures Procedure Name Priority Date/Time Associated Diagnosis Comme nts ECHO 2D COMP W DOPP Routine 12/16/2017 3:21 PM Mitral valve R esults for this AND CFI IF IND EST insufficiency, procedure a re in CONTRAST AND OR 3D unspecified etiology t he results section. documented in this encounter Results Echo [...] Organization Address City/State/ZIP Code Phon e Number [facility] documented in this encounter Visit Diagnoses Diagnosis Mitral valve insufficiency, unspecified etiology documented in this encounter
--- OUTSIDE RECORDS SUMMARY | 2021-04-04 10:52 | XMS_ITS | Encounter Summary ---
:1940 Author Organization [facility] and [facility] Address [address] [place] [phone] Care Team Providers Name Role Phone Inez Oneill MD Primary Care Provider Reason for Referral Imaging (Routine) Status Reason Specialty Diagnoses / Referred By Referred To Procedures Contact Contact Closed Cardiovascular Disease Diagnoses H/O mitral valve repair MVP (mitral valve prolapse) Carlos Dai Procedures Echo 2D Complete w Doppler and CFI if Indicated Contrast and or 3D MD Richy [address] [phone] Reason for Visit Reason Comments Follow-up Encounter Details Date Type Department Care Team Description 11/25/2016 Office Visit Cardiovascular Carlos Dai H/O dario ral valve repair (Primary Dx); Medicine at [address] Lockhart MD MVP (m itral valve prolapse) [facility] [address] [place], [place] [phone] Social History Tobacco Use Types Packs/Day Years Used Date Former Smoker Alcohol Use Drinks/Week oz/Week Comments Yes Sex Assigned at Date Recorded Not on file documented as of this encounter Last Filed Vital Signs Vital Sign Reading Time Taken Comments Blood Pressure 110/80 11/25/2016 1:40 PM EST Pulse 73 11/25/2016 1:40 PM EST Temperature - - Respiratory Rate - - Oxygen Saturation - - Inhaled Oxygen Concentration - - Weight 55.8 kg (123 lb) 11/25/2016 1:40 PM EST Height 157.5 cm (5' 2) 11/25/2016 1:40 PM EST Body Mass Index 22.5 11/25/2016 1:40 PM EST documented in this encounter Patient Instructions Patient InstructionsCarlos Dai MD - 11/25/2016 1:00 PM ESTNo change in medication. Amoxicillin before the dentist is OK. documented in this encounter Progress Notes Carlos Dai MD - 11/25/2016 1:00 PM EST November 25, 2016 Inez Oneill MD [address] [address] Patient: Etta Reyes MR Number: [id number] Date of : [address] Oneill, I had the pleasure of meeting Etta Reyes on 11/25/2016 in regard to her mitral valve disease. As you know, she underwent a mitral valve repair in 2012 at [facility]. She had underlying myxomatous mitralvalve disease. 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 The motor function of her left leg has remained normal, though she continues to have some paresthesias in her leg. Otherwise, she is physically quite activewith no specific cardiac symptoms. She occasionally is aware of an increased heart rate, but it hasnot caused dizziness or presyncope. She has had a Holter monitor in the last 15 months, which did no t show unusual tachy or rome arrhythmias. She reports that her last routine echocardiogram was also in the last 15 months. She has not had heart failure. She has no prior history of coronary insufficiency. At the time of her mitral valve surgery, she did not require prophylactic bypass surgery. Currently, the patient is fairly active. She uses a treadmill intermittently. She does not have unusual shortness of breath. She has no PND or orthopnea. Likewise, she has not had central substernal chest pressure. She is most aware of her heart rate when she is quiet, at night. She does not have palpitations, dizziness, or presyncope during the day. She continues to use amoxicillin prophylaxis. Review of Allergies/Medical History/Medications: Allergies: is allergic to azithromycin and sulfur. Outpatient medications: . Medication Sig Taking? aspirin 81 MG EC tablet Take 81 mg by mouth daily. Yes biotin 1 mg tablet Take 1,000 mcg by mouth daily. Yes calcium carbonate (TUMS) *200 mg CALCIUM* chewable tablet Take 1 tablet by mouth daily. Yes cholecalciferol (VITAMIN D) 1,000 unit tablet Take 1,000 Units by mouth daily. Yes cycloSPORINE (RESTASIS) 0.05 % Dpet Apply 1 drop to eye. Yes levothyroxine (SYNTHROID, LEVOTHROID) 100 MCG tablet Yes Past Medical History: There is no prior history of hypertension, diabetes or hyperlipidemia. The patient has not had peptic ulcer disease or kidney stones. She has had gallstones. She has also had a thyroidectomy and is on thyroid replacement. There is no history of bleeding. She has not had a TIA or CVA. She does not have renal dysfunction. Past Surgical History: Mitral valve repair, thyroidectomy, cholecystectomy. Social History: The patient is . She is retired. 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 She quit smoking almost 50 years ago. She consumes 1-2 ounces of alcohol on a daily basis. She exercises several times a week, either walking on a treadmill. Family History: The patient's father had clinically evident coronary disease at approximately the age of 60. There is no clear-cut history of premature CAD or sudden . Review of Systems: The patient's weight has been stable. She has not had recent fever, chills, or any bleeding. Other than noted above the 10 point ROS is negative. Physical Examination: BP 110/80 (Site: r a, Position: Sitting, Cuff Size: Medium) Pulse 73 Ht 5'2 (1.575 m) Wt 55.8 kg BMI 22.5 kg/m2, Constitutional: No distress. Comfortable supine. Head: Normocephalic. Mouth/Throat: Oropharynx is clear and moist. Eyes: Conjunctivae are normal. Pupils are equal and round. Neck: Supple. The thyroid is normal. Cardiovascular: Carotid upstrokes are full with no bruits. The jugular pressure is less than 8cm ofwater. The heart rate is normal and the rhythm is regular. There are no audible gallops or rub. Asystolic murmur is not audible. There are no diastolic murmurs. Pulmonary/Chest: Clear without wheezes or rales. Abdominal: Soft. Bowel sounds are normal. There is no tenderness. There is no rebound or guarding. No palpable organomegally. There are no bruits audible. Musculoskeletal: No gross rheumatologic deformities. Neurological: Alert, conversant, and oriented to person, place, and time. Skin: Warm and dry. Extremities: No edema. Pedal pulses are full. Psychiatric: Normal mood and affect. EKG: Normal sinus rhythm at a rate is 73 beats per minute. The axis and intervals are normal. The EKG is normal. Recent Lab: No results found for: CHOL, TRIG, HDL, LDL, GLU, HGBA1C, WBC, HGB, HCT, PLT, BUN, CREATININE, NA, K,CL, CO2, CALCIUM, TSH, [id number], DIGOXIN Impression: The patient is over 3 years out from mitral valve repair. She does not have audible residual mitralregurgitation today. Her functional capacity is good. She has no heart failure. She is aware of an accelerated beat intermittently, but has not had documented atrial fibrillation or tachy arrhythmias. Her overall functional capacity is quite good. She does not have coronary insufficiency. Her blood pressure is on target. Her EKG is benign today. Recommendation: The patient was reassured. No change in medication was made today. There was no additional cardiacimaging today. She had an echocardiogram a year ago. Though she does not fall under conventional criteria for antibiotic prophylaxis for dental procedures, given that she has a mitral valve ring, it is reasonable for her to continue with amoxicillin as long as she has no side effects related to it. Routine followup will be arranged in a year. At that point, the patient will have a followup echocardiogram. In the meantime, the patient knows to call if she develops any specific cardiac symptoms. It is a pleasure to meet the patient and participate in her care. Carlos Corona M.D., F.A.C.C. Office documented in this encounter Plan of Treatment Upcoming Encounters Date Type Specialty Care Team Description 05/04/2021 Appointment Cardiovascular Disease Jose D Crawford MD [address] [place] [phone] 05/29/2021 Office Visit Cardiovascular Disease Jose D Crawford MD [address] Sinan [address] [place] [phone] Scheduled Orders Name Type Priority Associated Diagnoses Order S chedule Echo 2D Complete w Echocardiography Routine H/O mitral valve E xpected: Doppler and CFI if repair 11/25/2016, Indicated Contrast MVP (mitral valve Expi res: and or 3D prolapse) 11/25/2017 documented as of this encounter Procedures Procedure Name Priority Date/Time Associated Comments Diagnosis EKG Routine 11/25/2016 1:45 H/O mitral valve Results for this PM EST repair procedure are i n the results section. LAB SCAN Routine 10/30/2015 CARDIAC EKG RESULT Routine 09/24/2015 SCAN CARDIAC DEVICE Routine 01/01/2015 INTERROGATION RESULT SCAN CARDIAC HOLTER RESULT Routine 11/25/2014 SCAN CARDIAC STRESS TEST Routine 10/22/2013 RESULT SCAN LAB SCAN Routine 04/11/2013 documented in this encounter Results EKG (11/25/2016 1:45 PM EST) ECG - HEART RATE 73 bpm [facility] EKG ECG - QRS Interval 97 ms [facility] EKG ECG - QT Interval 422 ms [facility] EKG ECG - QTC Interval 465 ms [facility] EKG ECG - P [place] 76 deg [facility] EKG ECG - QRS [place] 0 deg [facility] EKG ECG - T Wave [place] 13 deg [facility] EKG ECG -- P-R Interval 145Comment: :Sinus msec [facility] rhythm at 73 HOSPITAL EKG bpm.:Mild poor R wave progression.::Elec tronically Signed On 11-25-2016 16:38:51 EST by Carlos Dai MD Specimen Performing Organization Address City/State/ZIP Code Phon e Number [facility] EKG Lab Scan (10/30/2015) Specimen Blood specimen (specimen) Narrative Performed At This result has an attachment that is no t available. Performing Organization Address City/State/ZIP Code Phon e Number [facility] Cardiac EKG Result Scan (09/24/2015) Narrative Performed At This result has an attachment that is no t available. Performing Organization Address City/State/ZIP Code Phon e Number [facility] Cardiac Device Interrogation Result Scan (01/01/2015) Narrative Performed At This result has an attachment that is no t available. Performing Organization Address [facility] Code Phon e Number [facility] Cardiac Holter Result Scan (11/25/2014) Narrative Performed At This result has an attachment that is no t available. Performing Organization Address [facility] Phon e Number [facility] Cardiac Stress Test Result Scan (10/22/2013) Narrative Performed At This result has an attachment that is no t available. Performing Organization Address [facility] Phon e Number [facility] Lab Scan (04/11/2013) Specimen Blood specimen (specimen) Narrative Performed At This result has an attachment that is no t available. Performing Organization Address [facility] Phon e Number [facility] documented in this encounter Visit Diagnoses Diagnosis H/O mitral valve repair - Primary Personal history of surgery to heart and great vessels, presenting hazards to health MVP (mitral valve prolapse) Mitral valve disorders documented in this encounter
--- OUTSIDE RECORDS SUMMARY | 2021-04-04 10:52 | XMS_ITS | Encounter Summary ---
:1940 Author Organization [facility] and [facility] Address [address] [place] [phone] Care Team Providers Name Role Phone Inez Oneill MD Primary Care Provider Reason for Visit Reason Comments Follow-up Encounter Details Date Type Department Care Team Description 11/05/2019 Office Visit [facility] Marcela Crawford MD Palpitations (Primary Dx); Medicine at [address] [place] [address] Mitral valve [address] [phone] [place] [address] [phone] Social History Tobacco Use Types Packs/Day Years Used Date Former Smoker Quit: 1969 Smokeless Tobacco: Never Used Alcohol Use Drinks/Week oz/Week Comments Yes social Sex Assigned at Date Recorded Not on file documented as of this encounter Last Filed Vital Signs Vital Sign Reading Time Taken Comments Blood Pressure 120/70 11/05/2019 2:01 PM EST Pulse 90 11/05/2019 2:01 PM EST Temperature - - Respiratory Rate - - Oxygen Saturation 97% 11/05/2019 2:01 PM EST Inhaled Oxygen Concentration - - Weight 57.2 kg (126 lb) 11/05/2019 2:01 PM EST Height 158.8 cm (5' 2.5) 11/05/2019 2:01 PM EST Body Mass Index 22.68 11/05/2019 2:01 PM EST documented in this encounter Progress Notes Marcela Crawford MD - 11/05/2019 2:00 PM EST [facility] is a 79 y.o. year old female with a PMHx of myxomatous mitral valve s/p MV repair, presenting for followup. Brief Cardiac History: She underwent MV repair with an annuloplasty ring in [address] [facility]. 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 She was treated with ashort course of amiodarone. She subsequently wore a holter monitor for evaluation of palpitations [id number] which showed no PVCs, occasional PACs and [...] do not show any significant ventricular ectopy. Interim History: Since her last visit she wore a Holter monitor which showed occasional premature atrial and ventricular contractions. There were three beat runs of SVT. No atrial fibrillation or NSVT. Today she said that she continues to have palpitations but they are not as frequent as they were in September. They are still occurring daily. They are brief but can occur repetitively. No sustained episodes. No associated lightheadedness. She has not had any chest pain. She might experience short ness of breath when walking up hills it is not limiting. Otherwise she has no shortness of breath despite walking daily for exercise. No lower extremity edema. Additional Review of Systems 10 systems reviewed [...] tablet Take 60 mg by mouth daily. ??? calcium carbonate (TUMS) *200 mg CALCIUM* chewable tablet Take 1 tablet by mouth as needed ??? levothyroxine (SYNTHROID, LEVOTHROID) 100 MCG tablet Intolerances Azithromycin and Sulfur Physical Exam Pulse: [90] 90 BP: (120)/(70) 120/70 SpO2: [97 %] 97 % BP Readings from Last 3 Encounters: 11/05/19 120/70 10/15/19 110/80 09/04/19 134/72 Last 3 weights 11/05/2019 10/15/2019 09/04/2019 Weight (lb) 126 lb 123 lb 123 lb Weight (kg) 57.153 kg 55.792 kg 55.792 kg Constitutional: Calm and comfortable. Appears younger than her stated age. HEENT: Sclera anicteric. Moist oropharynx. Neck: JVP normal. No carotid bruits. CV: Regular rhythm. No pathologic murmur. Resp: Clear to auscultation with normal effort and excursion. Ext: Warm. No LE edema. Neuro: Alert, oriented, and appropriate. Data No recent labs available for review Prior ECG: sinus rhythm with multiple PVCs, nonspecific ST-T wave abnormalities with sub millimeter inferolateral ST depressions and prolonged QT interval. TTE (08/2019): * Normal left ventricular size, [...] ectopy. No NSVT. No atrial fibrillation. Impression Etta Reyes is a 79 y.o. female with a PMHx of myxomatous mitral valve s/p MV repair with post-op atrial fibrillation, presenting for followup. 1. Palpitations.History of post-op afib following her MV repair but has not had any documented episodes since. Her monitor showed occasional atrial and ventricular ectopy. No symptoms reported so unable to correlate. No atrial fibrillation. We discussed that it did not capture anything malignant so the main indication for treatment at this time would be if the symptoms are distressing/bothersome to her. She wanted to hold off on starting anything just yet but will let me know if she changes her mind. 2. Myxomatous mitral valve s/p MV repair. TTE showed no mitral stenosis and only trace residual MR. She does require antibiotic prophylaxis for dental procedures. 3. Prolonged QTc. Avoid QT prolonging meds. Will review lab work when it is sent over. I will see back in 4 months for followup. I asked her to call with any questions, concerns, or change in her clinical status in the interim. documented in this encounter Plan of Treatment Upcoming Encounters Date Type Specialty Care Team Description 05/04/2021 Appointment Cardiovascular Disease Jose D Crawford MD [address] [phone] 05/29/2021 Office Visit Cardiovascular Disease Jose D Crawford MD 2 [facility] 1 [place] [address] documented as of this encounter Visit Diagnoses Diagnosis Palpitations - Primary Mitral valve disease Other and unspecified mitral valve disea ses documented in this encounter
--- OUTSIDE RECORDS SUMMARY | 2021-04-04 10:52 | XMS_ITS | Encounter Summary ---
:1940 Author Organization [facility] and [facility] Address [address] [place] [phone] Care Team Providers Name Role Phone Inez Oneill MD Primary Care Provider Reason for Referral Imaging (Routine) Status Reason Specialty Diagnoses / Referred By Referred To Procedures Contact Contact New Request Cardiovascular Diagnoses H/O mitral valve repair Marcela Crawford, Disease Procedures Echo 2D Complete w Doppler and CFI if Ind Image Enhancement 3D and or bubbles MD 2 [facility] [address] [place] [phone] Reason for Visit Reason Comments Follow-up Encounter Details Date Type Department Care Team Description 11/17/2020 Office Visit Cardiovascular Marcela Crawford MD H/O mitral valve repair (Primary Dx); Medicine at [address] [place] 2 [facility] MVP (mitral valve prolapse); [facility] [place] [address] Palpitations [address] [place], [place] [address] [phone] [place] [address] [phone] Social History Tobacco Use Types Packs/Day Years [...] Mass Index 24.61 11/17/2020 10:11 AM EST documented in this encounter Progress Notes Marcela Crawford MD - 11/17/2020 10:15 AM EST [facility] is a 80 y.o. 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 Brief Cardiac History: She underwent MV repair with an annuloplasty ring in 2012 at [facility]. 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 She was treated with ashort course of amiodarone. She subsequently wore a holter monitor for evaluation of palpitations [id number] which showed no PVCs, occasional PACs and [...] No atrial fibrillation or NSVT. Interim History: Pt still has occasional palpitations lasting between a few seconds to 2 minutes and occurring a couple times a month. She denies increase in frequency of the episodes. She also reports some SOB when walking up hills but this is chronic and she denies SOB with daily activities. Pt denies chest pain, LEedema, and lightheadedness. She does not check her BP on a regular basis at home but she had a reading of 112/70 last week. She is remains active by walking or riding her bicycle 5 miles every other day. She has spoken to her PCP regarding increased acid reflux. She has seen improvement with Tums. She has noticed an increased tingling sensation in the left leg when standing for long periods of time due to nerve damage. In the past several months, she has become more intolerant to heat. Her thyroid was checked recentlyand her levels were fine. She did not address this heat intolerance with her PCP. Additional Review of Systems 10 systems reviewed [...] Reyes reports that she quit smoking about 51 years ago. She has never used smokeless [...] Intolerances Azithromycin and Sulfur Physical Exam Pulse: [78] 78 BP: (138)/(80) 138/80 BP Readings from Last 3 Encounters: 11/17/20 138/80 05/12/20 124/70 11/05/19 120/70 Last 3 weights 11/17/2020 05/12/2020 11/05/2019 Weight (lb) 126 lb 126 lb 126 lb Weight (kg) 57.153 kg 57.153 kg 57.153 kg Exam today: 11/17/2020 Constitutional: Calm and comfortable. HEENT: Sclera anicteric. Moist oropharynx. Neck: JVP normal. No carotid bruits. CV: Regular rhythm. No pathologic murmur. Resp: Clear to auscultation with normal effort and excursion. Ext: Warm. No LE edema. Neuro: Alert, oriented, and appropriate. Data Labs from 01/2019 Tchol 218, HDL 67, TG 107, LDL 130 CMP wnl including Cr 0.76, K 4.4 CBC wnl Labs from 05/2020: Tchol 221, LDL 127, HDL 72, Trig 116 Labs from 10/2020: CMP notable for glucose of 148. Creatinine 0.75 and potassium 4.2 HbA1c 5.8 CBC wnl ECG today: Sinus rhythm with PAC, anteroseptal Q waves, and nonspecific ST-T wave abnormalities. Compared to prior there is no diagnostic change. TTE (08/2019): [...] atrial fibrillation. Impression Etta Reyes is a 80 y.o. female with a PMHx of myxomatous mitral valve s/p MV repair in 2012 with isolated episode of post-op atrial fibrillation, presenting for followup. 1. Palpitations. History of post-op afib following her MV repair in 2012 but has not had any documented episodes since. Her monitor in 10/2019 showed occasional atrial and ventricular ectopy but no atrial fibrillation. She continues to have brief episodes of palpitation a few times per month but there is no increase of frequency or duration. Will continue to monitor. To date, we have not started beta daxa therapy as we have not captured significant arrhythmias and she has not felt the symptoms warrant treatment. 2. Myxomatous mitral valve s/p MV repair in 2012. Last TTE showed no mitral stenosis and only trace residual MR. Will plan on repeat echocardiogram prior to her next visit. She requires antibiotic prophylaxis for dental procedures. 3. Prolonged QTc. QTc is within normal limits on current EKG. 4. Primary prevention of CAD. She has no known history of coronary disease or diabetes. Her LDL is 127. We discussed possibly starting statin based on her 10 year risk but decided to hold off. I will see back in 6 months for followup. I asked her to call with any questions, concerns, or change in her clinical status in the interim. Scribed for Dr. Marcela Crawford by Loren Rosas medical office asst. November 17, 2020 Electronically Signed by Loren Rosas, November 17, 2020 The documentation recorded by the scribe accurately reflects the service I personally performed and the decisions made by me. and I reviewed and confirmed the material pre-charted by the scribe at the time of the encounter Electronically Signed by Loren Rosas, November 17, 2020 documented in this encounter Plan of Treatment Upcoming Encounters Date Type Specialty Care Team Description 05/04/2021 Appointment Cardiovascular Disease Jose D Crawford MD [address] [phone] 05/29/2021 Office Visit Cardiovascular Disease Jose D Crawford MD [address] [phone] Scheduled Orders Name Type Priority Associated Diagnoses Order S chedule Echo 2D Complete w Echocardiography Routine H/O mitral valve E xpected: Doppler and CFI if repair , Ind Image Enhancement s: 3D and or bubbles 11/17/2021 documented as of this encounter Procedures Procedure Name Priority Date/Time Associated Diagnosis Comme nts EKG Routine 11/17/2020 10:12 AM H/O mitral valve Resu lts for this EST repair procedure are in the MVP (mitral valve results se ction. prolapse) documented in this encounter Results EKG (11/17/2020 10:12 AM EST) ECG - HEART RATE 78 bpm [facility] EKG ECG - QRS 88 ms [facility] EKG ECG - QT 394 ms [facility] EKG ECG - QTC 450 ms [facility] EKG ECG - P [place] 83 deg [facility] EKG ECG - QRS [place] 4 deg [facility] EKG ECG - T Wave -7 deg [facility] EKG ECG -- P-R 146 msec [facility] EKG ECG - SEVERITY Abnormal ECGComment: severity [facility] :Sinus rhythm:Atrial HOSPITAL EKG premature complex:Probable left atrial enlargement:Anteroseptal infarct, age indeterm[place]c[facility] [place]:Electronically Signed On 11-17-2020 22:51:16 EST by OLIVERIO STEARNS MD Specimen Performing Organization Address City/State/ZIP Code Phon e Number [facility] EKG documented in this encounter Visit Diagnoses Diagnosis H/O mitral valve repair - Primary Personal history of surgery to heart and great vessels, presenting hazards to health MVP (mitral valve prolapse) Mitral valve disorders Palpitations documented in this encounter
--- OUTSIDE RECORDS SUMMARY | 2021-04-04 10:52 | XMS_ITS | Encounter Summary ---
:1940 Author Organization [facility] and [facility] Address [address] [place] [phone] Care Team Providers Name Role Phone Inez Oneill MD Primary Care Provider Reason for Visit Reason Comments Other Monitor Encounter Details Date Type Department Care Team Description 09/12/2019 Telephone Cardiovascular Medicine Marcela Crawford MD Other (Monitor) at [address] [place] [address] 2 [facility] 2 [facility] 1 [facility] 1 [place], [place] [address] [address] [place], [place] [phone] Social History Tobacco Use Types Packs/Day Years Used Date Former Smoker Quit: 1970 Smokeless Tobacco: Never Used Alcohol Use Drinks/Week oz/Week Comments Yes social Sex Assigned at Date Recorded Not on file documented as of this encounter Miscellaneous Notes Telephone Encounter - Kyra Maki LPN - 09/12/2019 3:50 PM CHERI spoke to this pt and she is going to call [employer]/ to fine out if they want her to send the event recorder back and start new when she returns from her travels. elephone Encounter - Marcela Crawford MD - 09/12/2019 3:35 PM ESTThat is fine with me. elephone Encounter - Robel Johnson RN - 09/12/2019 10:56 AM ESTPatient is not getting good cell service in [place] for event monitor transmission. Will be traveling the next to weeks. Asking if she can wait to test again then? documented in this encounter Plan of Treatment Upcoming Encounters Date Type Specialty Care Team Description 05/04/2021 Appointment Cardiovascular Disease Jose D Crawford MD [address] [phone] 05/29/2021 Office Visit Cardiovascular Disease Jose D Crawford MD [address] [phone] documented as of this encounter Visit Diagnoses Not on filedocumented in this encounter
--- OUTSIDE RECORDS SUMMARY | 2021-04-04 10:52 | XMS_ITS | Encounter Summary ---
:1940 Author Organization [facility] and [facility] Address [address] [place] [phone] Care Team Providers Name Role Phone Inez Oneill MD Primary Care Provider Encounter Details Date Type Department Care Team Description 02/01/2019 Scanned Document Cardiovascular Medicine External, Provider at [address] [place] [phone] Social History Tobacco Use Types Packs/Day Years Used Date Former Smoker Quit: 1970 Smokeless Tobacco: Never Used Alcohol Use Drinks/Week oz/Week Comments Yes social Sex Assigned at Date Recorded Not on file documented as of this encounter Plan of Treatment Upcoming Encounters Date Type Specialty Care Team Description 05/04/2021 Appointment Cardiovascular Disease Jose D Carwford MD [address] [place] [phone] 05/29/2021 Office Visit Cardiovascular Disease Jose D Crawford MD [address] [place] [phone] documented as of this encounter Procedures Procedure Name Priority Date/Time Associated Diagnosis Comme nts LAB SCAN Routine 02/01/2019 documented in this encounter Results Lab Scan (02/01/2019) Narrative Performed At This result has an attachment that is no t available. documented in this encounter Visit Diagnoses Not on filedocumented in this encounter
[2021-04-04 10:55] LABS: Troponin I < 0.05 ng/mL (<0.06)
[2021-04-04 10:57] LABS: TSH (W/Ref FT4) 0.91 uIU/mL (0.36-3.74)
[2021-04-04 11:02] LABS: D-Dimer 364 ng/mlFEU (<500)
[2021-04-04 11:05] VITALS: BP 148/78; PULSE 83; PULSE 84; RESP 14; O2SAT 98
[2021-04-04 11:10] LABS: PTT Activated 22.7 sec (21.0-27.5)
[2021-04-04 11:16] VITALS: BP 138/72; PULSE 79; PULSE 84; RESP 15; O2SAT 98
--- NOTE | 2021-04-04 11:51 | DI.VRAD_ITS ---
PROCEDURE INFORMATION: Exam: XR Chest Exam date and time: 04/04/2021 10:18 AM Age: 80 years old Clinical indication: Other: Left chest pain feels hot; Prior surgery; Surgery date: 6+ months; Surgery type: Valve repair 2012 TECHNIQUE: Imaging protocol: XR of the chest. Views: 2 views. COMPARISON: No relevant prior studies available. FINDINGS: Lungs: Emphysema with interstitial prominence in the upper lungs, right worse than left that could be due to scarring or infiltrate. Pleural spaces: Unremarkable. No pleural effusion. No pneumothorax. Heart/Mediastinum: Mitral valve repair. Bones/joints: Unremarkable. Intraperitoneal space: Surgical clips right upper quadrant. IMPRESSION: Emphysema with scarring or infiltrate in the upper lungs. Dictated and Authenticated by: Abigail Rubi MD. Ordering:ROSEMARIE Perez MD
[2021-04-04] MEDS: Pantoprazole 40 MG VIAL IVP (12:14)
--- NOTE | 2021-04-04 12:30 | RT.EKG_ITS ---
APPROVED REPORT Exam: Resting ECG Reason for Exam: chest pain Patient Location: E HR:80 bpm ECG Measurements Heart Rate 80 AXIS MN 144 P 49 QRSd 92 QRS -5 QT 418 T 6 QTc 483 Conclusion Sinus rhythm...normal P axis, V-rate 60- 99. Improvement and near resolution of ST depressions in anterolateral leads. No STEMI. I have reviewed and interpreted ECG and agree with software generated interpretation.
[2021-04-04 13:31] VITALS: BP 137/78; PULSE 89; RESP 16; O2SAT 98
[2021-04-04 13:39] LABS: Troponin I < 0.05 ng/mL (<0.06)
--- NOTE | 2021-04-04 14:09 | NUR.NOTE ---
Nursing Note: ambulation trial. pt walked to respiratory dept and back. HR 99-107 and SP02 98%-100%. denies CP,SOB,Dizziness.
== END 2021-04-04 14:36 | disposition home or self-care (01) ==
PROVIDERS: Emergency Provider Physician Assistant
DX: R07.89 Other chest pain (principal); D72.829 Elevated white blood cell count, unspecified
CPT/HCPCS: 36415; 80053; 93005; 96374; 99285; 71046; 83735; 84443; 84484; 85025; 85379; 85610; 85730; 93010; 99284